=== PATIENT | male | born 1970 | race Caucasian/White ===

== ENCOUNTER 2017-05-05 09:48 | Emergency (ER) | payer BC, OTHER ==
[~2017-05-05] VITALS: Ht 177.8 cm; Wt 106.0 kg
[2017-05-05 10:00] VITALS: TEMP 36.9; Ht 177.8 cm; Wt 106.0 kg
[2017-05-05] MEDS ORDERED: IBUPROFEN 600 MG TAB PO STA (10:11)
--- NOTE | 2017-05-05 10:49 | DIAGNOSTIC IMAGING REPORT ---
LEFT KNEE 3 VIEWS CLINICAL HISTORY: Medial left knee pain following injury. COMPARISON: None FINDINGS: Alignment of the left knee is anatomic. No fracture or suspicious lesion is identified. Joint spaces are preserved. There is a trace left knee joint effusion. A small bone island is noted within the proximal left tibia. IMPRESSION: 1. No acute fracture. 2. Trace left knee joint effusion. Electronically signed by: Eleuterio Miller M.D. 05/05/2017 10:48 AM Dictated Date/Time: 05/05/2017 10:47 AM
[2017-05-05 11:24] VITALS: BP 136/82; PULSE 67; O2SAT 96
--- NOTE | 2017-05-05 16:40 | EMERGENCY ROOM VISIT NOTE ---
ED Visit Note First contact with patient: 09:57 CHIEF COMPLAINT: Left Knee injury HISTORY OF PRESENT ILLNESS: This 46-year-old white male patient injured his left knee last night when he was grilling and slipped on his wet deck. He states the right leg went forward and the left leg flexed awkwardly underneath him. He does not recall any snap or pop. No prior history of significant knee injury. He denies any numbness or tingling. He is having difficulty straightening the leg fully. He feels better in a flexed position. Pain is primarily medial. He denies any swelling. No locking. He does feel as though something is sticking medially. He is currently using crutches. REVIEW OF SYSTEM: HEENT: No dizziness, visual problems, hearing loss, or tinnitus. There is no difficulty swallowing and no oral lesions are present. PULMONARY: No cough, shortness of breath, sputum production or hemoptysis. CARDIOVASCULAR: No chest pain, palpitations, shortness of breath or peripheral edema. GASTROINTESTINAL: No diarrhea, constipation, nausea, vomiting, or abdominal pain. GENITOURINARY: No dysuria, frequency, urgency or nocturia. NEUROLOGIC: No weakness, muscle tenderness, epilepsy or history of neurological problems. MUSCULOSKELETAL: No history of joint tenderness/swelling. No history of arthritis or arthralgias. SKIN: No rashes or lesions. ENDOCRINE: No history of diabetes, thyroid disorders, or abnormal hair growth. PMH: The patient is healthy; there is no significant medical or surgical history. Family history: Noncontributory Current medications: Reviewed and filed in patient's chart Allergies: NKDA SOCIAL HISTORY: Patient lives at home. PHYSICAL EXAM: Vital Signs: Reviewed Nurse's notes. MENTAL STATUS: Alert, oriented, and cooperative. Laying on a bed. Musculoskeletal: The left knee is not swollen. There is no joint effusion. He has focal pain with palpation over the MCL and medial joint line. No pain with palpation over the lateral joint line or LCL. Normal Yomi. Stressing of the MCL also causes significant pain. I do not appreciate significant laxity. No pain with stressing of the LCL. The range of motion is somewhat limited secondary to pain. He is able to fully extend with gentle assistance. He feels better with a small bump under the knee or with the knee flexed. Flexion to greater than 100. There is medial joint line pain with Ama testing. No defect in the patellar tendon or quadriceps tendon. He is able to set his quad and perform a leg raise. He can bear full weight in a flexed knee position. He has difficulty bearing weight with his leg extended. Neurologic: Gross sensation is intact across the left leg by soft touch. Peripheral pulses are 2+. EMERGENCY DEPARTMENT COURSE: X-ray does not show any fractures or fluid in the joint. This was read by radiology. DIAGNOSIS: Left knee medial pain. MCL sprain. DISCHARGE INSTRUCTIONS: Patient was educated regarding today's findings. Conservative care measures were discussed. X-ray imaging was obtained. Likelihood of MCL injury was discussed. Possibility of medial meniscal injury was discussed. Option of narcotic pain medication was discussed with him. He declined. Start Ibuprofen, 600 mg every 6 hours if needed for pain. Supplement with Tylenol every 6 hours as needed for breakthrough pain. Ice to and elevation to the knee frequently for the next 72 hours. Continue to use his crutches. Weight-bear as tolerated. Follow-up with his orthopedist of choice this week for reexamination. He was encouraged to perform gentle range of motion to prevent contracture. Option of knee immobilizer was also discussed. He declined. He will use an [id number] knee sleeve her brace to provide support. Problem List Medical Problems: (1) Nephrolithiasis Status: Resolved Current/Historical Medications No Active Prescriptions or Reported Meds Allergies Coded Allergies: No Known Allergies (Unverified , NONE, 07/29/14) Vital Signs Date Time Temp Pulse Resp B/P (MAP) Pulse Ox O2 Delivery O2 Flow Rate FiO2 05/05/17 11:24 67 16 136/82 96 05/05/17 10:17 151/81 05/05/17 10:00 36.9 71 18 161/104 95 Room Air Medications Administered Medications (Trade) Dose Ordered Sig/Isauro Route Start Time Stop Time Status Last Admin Dose Admin Ibuprofen (Motrin Tab) 600 mg NOW STAT PO 05/05/17 10:11 05/05/17 10:13 DC 05/05/17 10:17 600 MG Departure Information Impression Primary Impression: Sprain of MCL (medial collateral ligament) of knee Additional Impression: Left medial knee pain Dispostion Home / Self-Care Condition FAIR Prescriptions No Active Prescriptions or Reported Meds Forms HOME CARE DOCUMENTATION FORM, MOTRIN USE, TYLENOL USE, IMPORTANT VISIT INFORMATION Patient Instructions My Evomail Additional Instructions Tylenol and ibuprofen every 6 hours as needed for discomfort Use the Jonathan wrap or a knee brace to provide support Use the crutches until you can walk without a [id number] as tolerated Follow-up with orthopedics this week for reassessment Gentle motion daily Problem Qualifiers
== END 2017-05-05 11:25 | disposition home or self-care (01) ==
LOC: C.EDB 09:50 → C.EDA 11:25
DX: S83.412A Sprain of medial collateral ligament of left knee, initial encounter (principal); Y93.G2 Activity, grilling and smoking food; W01.0XXA Fall on same level from slipping, tripping and stumbling without subsequent striking against object, initial encounter